=== PATIENT | male | born 1970 | race Caucasian/White ===

== ENCOUNTER 2018-04-17 10:16 | Emergency (ER) | payer SELFPAY ==
[2018-04-17 10:31] VITALS: BP 159/94
[2018-04-17] MEDS ORDERED: XYLOCAINE 1% 20 mL INFILTRATI ONE (10:43)
--- NOTE | 2018-04-17 10:43 | Emergency Department Report ---
Abscess Boil HPI - HPI Chief Complaint: Skin/Abscess/Foreign Body Stated Complaint: LFT EAR BOIL Time Seen by Provider: 04/17/18 10:39 Duration: 3 Days Location: Other (l ear) Severity: Moderate History: Yes Pain, Yes Purulent Drainage, Yes Previous History, No Fever, No Numbness, No Foreign Body, No Insect Bite HPI: 47 yo who comes to er with abscess behind left ear. pt states he gets abscess often but never on ear. no trauma Home Medications: Previous Rx's Medication Instructions Recorded Last Taken Type levoFLOXacin [Levaquin] 750 mg PO QDAY #9 tablet 04/17/18 Unknown Rx traMADol [Ultram] 50 mg PO Q6HR PRN #12 tablet 04/17/18 Unknown Rx Allergies/Adverse Reactions: Allergies Allergy/AdvReac Type Severity Reaction Status Date / Time No Known Allergies Allergy Verified 04/17/18 10:31 ED Review of Systems ROS: Stated complaint: LFT EAR BOIL Other details as noted in HPI Comment: All other systems reviewed and negative Constitutional: denies: chills ENT: as per HPI, ear pain Respiratory: denies: see HPI Cardiovascular: denies: dyspnea on exertion Endocrine: denies: flushing Gastrointestinal: denies: abdominal pain Genitourinary: denies: dysuria Skin: as per HPI, lesions Neurological: denies: headache Psychiatric: denies: depression Hematological/Lymphatic: denies: as per HPI ED Past Medical Hx - Past Medical History Previous Medical History?: No - Surgical History Past Surgical History?: No - Social History Smoking Status: Current Every Day Smoker Substance Use Type: Alcohol - Medications Home Medications: Home Medications Medication Instructions Recorded Confirmed Last Taken Type levoFLOXacin [Levaquin] 750 mg PO QDAY #9 tablet 04/17/18 Unknown Rx traMADol [Ultram] 50 mg PO Q6HR PRN #12 tablet 04/17/18 Unknown Rx ED Abscess Boil Physical Exam - Exam General: Vital signs noted. No distress. Alert and acting appropriately. Size: 5 cm Exam: Yes Tenderness, Yes Fluctuance, Yes Surrounding Cellulites/Erythema, Yes Heart Murmur, Yes Normal Neurologic Exam, Yes Normal Circulation, No Lymphangitis, No Crepitation Exam: afebrile. s1s2. lungs cta. abd snt. nontoxic I & D Note - I & D Note I & D Note: lido 2% 2 ml for anesthesia to area. area cleaned. I/D performed for large amount brown foul smelling drainage. dressing applied. tolerated well ED Course Vital Signs 04/17/18 10:27 Temperature 98.1 F Pulse Rate 82 Respiratory 18 Rate Blood Pressure 159/94 O2 Sat by Pulse 98 Oximetry Critical care attestation.: If time is entered above; I have spent that time in minutes in the direct care of this critically ill patient, excluding procedure time. ED Medical Decision Making - Medical Decision Making I/D medicated for pain levaquin po tdap updated educated on self care dc home with discharge instructions. - Differential Diagnosis abscess ED Disposition Clinical Impression: Abscess, Cauliflower ear, left ear Disposition: DC-01 TO HOME OR SELFCARE Is pt being admited?: No Condition: Stable Instructions: Abscess Incision and Drainage (ED), Abscess (ED) Additional Instructions: SOAK IN EPSOM SALTS WE DISCUSSED MAINTAIN PRESSURE DRESSING TO HELP EAR RETURN TO NORMAL WARM COMPRESSES WILL HELP FOR COMFORT MOTRIN OR TYLENOL FOR MILD PAIN OR FEVER MED ORDERED TODAY FOLLOW UP PCP REFERRAL BELOW Prescriptions: levoFLOXacin [Levaquin] 750 mg PO QDAY #9 tablet traMADol [Ultram] 50 mg PO Q6HR PRN #12 tablet PRN Reason: Pain Referrals: [facility] [Outside] - 3-5 Days Time of Disposition: 11:13
[2018-04-17] MEDS ORDERED: KEFLEX PO ONE (10:44)
[2018-04-17] MEDS ORDERED: IBUPROFEN ONE (11:05)
[2018-04-17] MEDS ORDERED: IBUPROFEN PO ONE (11:05)
[2018-04-17] MEDS ORDERED: TORADOL IM ONE (11:12)
[2018-04-17] MEDS ORDERED: DECADRON IM ONE (11:12)
[2018-04-17] MEDS ORDERED: LEVAQUIN PO ONE (11:12)
[2018-04-17] MEDS ORDERED: BOOSTRIX IM ONE (11:25)
[2018-04-17] MEDS ORDERED: TENIVAC IM ONE (11:43)
[2018-04-17] MEDS ORDERED: NORCO 5/325 PO ONE (12:43)
== END 2018-04-17 11:56 | disposition home or self-care (01) ==
LOC: ED 10:16
DX: H66.42 Suppurative otitis media, unspecified, left ear (principal); M95.12 Cauliflower ear, left ear
CPT/HCPCS: 10060; 90471; 90715; 96372; 99282; J1100; J1885; 90714